=== PATIENT | female | born 1970 | race Caucasian/White ===

== ENCOUNTER 2024-11-27 00:24 | Inpatient (IN) | payer OTHER, SELFPAY ==
[2024-11-26 19:10] VITALS: BP 95/59
--- NOTE | 2024-11-26 19:59 | ED.GENMED ---
History of Present Illness
<Idania Yang PA-C - Last Filed: 11/27/24 12:28>
General
Chief Complaint: Skin Problem
Source: patient
Exam Limitations: none
Time Seen by Provider: 11/26/24 19:53
Nursing documentation reviewed up to this point in time: agreed with
History of Present Illness
History of Present Illness:
TIME OF INITIAL EVALUATION
- 20:10
REVIEW OF OLD RECORDS
- Records from [facility] obtained. Patient admitted with concern of sepsis 2/2 infected wound of DORIS walsh from IVDU. She left AMA yesterday and presents to [facility].
Note:
CHIEF COMPLAINT(S)
Severe weakness and leg wound requiring debridement.
HISTORY OF PRESENT ILLNESS
The patient is a 54-year-old female with a history significant for chronic drug use, presenting with severe weakness and large wound on her left lower leg. Symptoms began approximately four days ago, including speaking gibberish, involuntary head
movements, and inability to use her legs due to weakness, not pain. The wound in question has been present for about two months, initially small and progressively worsening. The patient reports associated symptoms of fever and chills.
She was admitted at at [facility], however left AGAINST MEDICAL ADVICE yesterday given her dissatisfaction with care. Apparently�they were planning to surgically debride wound and briefly considered amputation.
Patient presents here she is still feeling extremely weak. She has been unable to ambulate given her significant weakness.
She has a history of sepsis and is concerned about recurrence given her symptoms.
The patient reports she has a history of IV drug use however has been clean for the past 20 years until recently when her fianc� . She states she has been using IV tranquilizer for the past 6 weeks. She denies alcohol use.
The patient denies current chest pain or shortness of breath.
CHRONIC MEDICAL CONDITIONS SIGNIFICANTLY AFFECTING CARE
Chronic conditions affecting care: History of sepsis and chronic drug use.
SOCIAL DETERMINANTS AFFECTING HEALTH
The patient has a history of chronic drug use over 25 years, with recent cessation three days ago. She reports having abstained from substance use for 20 years previously. Her current symptoms are potentially exacerbated by socioeconomic challenges,
including a disruptive home environment and stress related to her daughters actions.
REVIEW OF SYSTEMS
- Constitutional: Severe weakness, fatigue, fever, and chills.
- Neurological: No current confusion. Previous episodes of speaking gibberish and involuntary movements described.
- Respiratory: No shortness of breath reported.
- Cardiovascular: Denies chest pain. Reports previous episodes of dropping blood pressure.
- Gastrointestinal: Nausea and vomiting after drug cessation.
- Musculoskeletal: Inability to walk due to weakness. No pain reported with weakness.
- Skin: Wounds on left leg, no other wounds noted.
PHYSICAL EXAM
- Vitals: Borderline hypotensive on arrival. Afebrile
- General: Pale.
- HEENT: Poor dentition. Moist oral mucosa
- Cardiovascular: No murmurs, normal heart rate, regular rhythm, No chest wall tenderness.
- Pulmonary: No respiratory distress, breath sounds are clear and equal
- Abdomen: Soft with no peritoneal signs, no tenderness
- Neurologic: A&O x 3. Strength 5/5 in bilateral upper and lower extremities. No focal neurologic deficits
- Psychiatric: Appropriate mental status.
- Extremities: Large relatively superficial wound to left anterior lower leg with areas of necrosis. Palpable DP pulse in LLE.
- Skin: Wound to left lower leg
PLAN
- Obtain full laboratory workup, including blood cultures and lactate levels.
- Administer IV fluids to address dehydration and potential infection.
- Administer IVF abx for suspected infected wound of LLE.
- Review records from [facility] to inform and enhance current treatment strategy.
- Monitor vital signs and neurological status closely due to history of sepsis and symptoms suggestive of potential recurrence.
DIFFERENTIAL DIAGNOSIS
The Differential Diagnosis includes, in no particular order and is not limited to:
1. Sepsis
2. Cellulitis
3. Abscess formation
4. Osteomyelitis
5. Septic arthritis
6. Necrotizing fasciitis
7. Withdrawal syndrome
8. Peripheral neuropathy secondary to chronic drug use
9. Thrombophlebitis
10. Deep vein thrombosis
LABS
- CBC reveals mild anemia with hgb of 10.5, no leukocytosis. Chemistry essentially unremarkable. Lactic elevated to 2.3 possible secondary to dehydration or infection
- Blood cultures and wound cultures sent.
UPDATE
- Patient has very poor vascular access and a peripheral IV was unable to be placed by nurse or attending physician under US guidance. Ultimately - it was decided to place a right IJ central line. Discussed with patient and written consent obtained.
Right IJ central line successfully placed by attending physician. Patient tolerated procedure well.
- Patient has no current severe symptoms of withdrawal other than nausea/vomiting. Will tx with benadryl/ reglan.
SUMMARY OF ENCOUNTER
The patient is a 54-year-old female with a history of intravenous drug use, presenting to the emergency department with significant weakness and a large wound on the left lower extremity, having left against medical advice from [facility].
She was previously evaluated for the leg wound and surgical discussion regarding possible debridement or amputation took place. Currently, the patient denies fever, chills, chest pain, and shortness of breath. Upon ED arrival, she was hypotensive,
appeared very weak, dry, and dehydrated, which will require hospitalization. Management included placement of right IJ central line as well as administration of IV fluids, obtaining lab work and cultures (both blood and wound), and initiation of IV
antibiotics in ED. Patient accepted to hospitalist service for further management.
MEDICATION RECONCILIATION
Initiated IV Vancomycin and Piperacillin-Tazobactam (Zosyn) in the emergency department.
MEDICAL DECISION MAKING
1. Number & Complexity of Problems: Chronic conditions affecting care include a history of intravenous drug use. Differential diagnoses considered were sepsis, cellulitis, osteomyelitis, and withdrawal syndrome.
2. Data Reviewed:
- Category 1: Lab work showed mild aberrations�mildly elevated lactate at 2.3, indicating potential dehydration or infection.
- Category 2: Obtained records from [facility], reviewed prior care and imaging records indicating significant edema without necrotizing fasciitis or osteomyelitis.
3. Risk: Consideration of admission due to the complexity and risk associated with significant wound infection, potential for sepsis, dehydration, and the patients inability to care for herself independently.
PROCEDURES
- Central line placement with ultrasound guidance due to difficulty obtaining peripheral IV access. The patient tolerated the procedure well.
INDEPENDENT REVIEW OF LABS AND INTERPRETATION OF TESTS
- My independent review of chemistry is without acute abnormalities. Lactic acid is mildly elevated at 2.3, suggestive of dehydration or infection presence.
PATHOLOGIES TO CONSIDER
- Sepsis (due to wound infection, hypotension, and elevated lactate)
- Cellulitis (considering large infected leg wound)
- Osteomyelitis (though previous imaging did not show evidence)
- Withdrawal syndrome (history of drug use with recent cessation)
- Cellulitis (considering large infected leg wound)
- Osteomyelitis (though previous imaging did not show evidence)
- Withdrawal syndrome (history of drug use with recent cessation)
Past History
<Idania Yang PA-C - Last Filed: 11/27/24 12:28>
Past History
ED Past Medical History: Other (IV drug abuse, methadone dependence), Other (Left knee septic arthritis MSSA) and Other (Cholelithiasis)
ED Past Surgical History: Orthopedic (Left knee arthroscopy, washout procedure 03/25/2017)
Social History
Tobacco: Smoker
Alcohol: Occasional
Drug: Cocaine, Narcotics and IVDA
Living: with family
Employment: Not employed
Family History
Family History: Asthma
Review of Systems
<Idania Yang PA-C - Last Filed: 11/27/24 12:28>
Review of Systems
Allergies reviewed?: Yes
All Other Systems: ROS reviewed and negative except as documented in HPI and ROS
Phy Exam
<Idania Yang PA-C - Last Filed: 11/27/24 12:28>
Physical Exam
Physical Exam:
See HPI
Course
<Idania Yang PA-C - Last Filed: 11/27/24 12:28>
Orders/Labs/Results
Orders:
Orders
11/26/24 19:16
Electrocardiogram (*1) Urgent
Reason for Study: Other
Other Reason for Exam: Possible Sepsis
Cardiac Monitoring- Treatment ONCE
EKG- Treatment ONCE
O2 Therapy [RESP] Urgent
Titrate/Wean O2 to maintain O2 sat greater than (%): 93
Special Instructions: TO MAINTAIN CONTINUOUS O2 SATS > OR = 93%
Pulse Ox/cont/shift [RESP] Urgent
Quantity: 1
Special Instructions: CONTINUOUS
11/26/24 20:13
Complete Blood Count/With Diff Urgent
Comprehensive Metabolic Panel Urgent
Lactic Acid Q4H
Comment: ON ICE, CANCEL 2ND ORDER IF FIRST LACTIC ACID LEVEL <2
11/26/24 20:16
0.9% Sodium Chloride 1000 ml [Nss] 1,000 ml IV BOLUS
11/26/24 22:12
CR Chest Portable - 1 View Urgent
Comment:
Reason For Exam: R IJ line placement
Reason Study Needs to be Portable: Patient Unstable
11/26/24 22:41
Piperacillin/Tazo 3.375 Gram [Zosyn] 3.375 gram in 50 ml IV NOW
11/26/24 22:49
Blood Culture Q30M
DC Source: Blood/Venous
Specimen Description:
Blood Culture Q30M
DC Source: Blood/Venous
Specimen Description:
Wound Culture [Wound/Abscess/Other Culture] Urgent
DC Source: Leg
Specimen Description: Left
Date Specimen was Collected: 11/26/24
Time Specimen was Collected: 22:47
11/26/24 23:00
Flush (0.9% Sodium Chloride) [Flush (Nss)] See Dose Instructions IV PER PROTOCOL
11/26/24 23:11
Vancomycin [Vancocin] 2,000 mg 0.9% Sodium Chloride 500 ml [Nss] 500 ml IV NOW
11/26/24 23:18
Diphenhydramine [Benadryl] 50 mg PO NOW STA
11/26/24 23:30
Lactic Acid Q4H
Comment: ON ICE, CANCEL 2ND ORDER IF FIRST LACTIC ACID LEVEL <2
11/26/24 23:31
Metoclopramide [Reglan] 10 mg IV NOW STA
11/26/24 23:33
Diphenhydramine [Benadryl] 25 mg IV NOW STA
11/27/24 00:02
Admit/Transfer Patient As Directed
Co-Sign Provider:
Level of Care: Inpatient admission
Assign to:: Telemetry
Physician / Group: Kim
Diagnosis: wound infection
Reason for Telemetry: Other
Other Reason for Telemetry: monitor withdrawal
Date to Stop Telemetry: 11/29/24
Time to Stop Telemetry: 11:00
Reason for Hospitalization: weakness, infection
Expected length of stay greater than two midnights?: Yes
ELOS- Estimated Length of Stay in days: 2
I certify the patient meets the requirements for IP care: Yes
11/27/24 00:03
Code Status As Directed
Resuscitation Status: Full Code
PRN Pain Medication Management As Directed
May give lesser potent ordered pain med per pt: Yes
preference::
Protocol:: Medication orders for pain may be administered in a
manner that supports deferring to patient preference
when the pt is:
- Requesting an ordered lesser potent pain medication.
Least to most potent pain medications are defined
as: acetaminophen < NSAID < tramadol < opioids
(morphine, oxycodone, hydromorphone).
- Requesting a lesser dose of the same medication IF
ORDERED.
- Requesting a less intrusive route of administration
if both routes are prescribed by the provider (PO <
IV).
11/27/24 01:33
0.9% Sodium Chloride 1000 ml [Nss] 1,000 ml IV 100 mls/hr
Acetaminophen [Tylenol] 650 mg PO Q4HPRN PRN
Bisacodyl [Dulcolax] 10 mg RECTAL [id number] PRN
Buprenorphine [Subutex] 4 mg SL Q4HPRN PRN
Clonidine [Catapres] 0.1 mg PO Q6HPRN PRN
Docusate W/Senna [Senokot-S] 1 tablet PO BIDPRN PRN
HydrOXYZINE [Atarax] 50 mg PO Q6HPRN PRN
Loperamide [Imodium] 2 mg PO Q4HPRN PRN
Lorazepam [Ativan] 0.5 mg PO Q6HPRN PRN
Ondansetron Injectable [Zofran] 4 mg IV Q6HPRN PRN
Polyethylene Glycol Powder [Miralax] 17 grams PO DAILYPRN PRN
Tizanidine [Zanaflex] 2 mg PO Q6HPRN PRN
11/27/24 01:33
Case Management Consult ONCE
Case Management Consult: Other
Comment: opioid withdrawal
Consult Notification Routine
Specialty to Notify: Infectious Disease
INFECTIOUS DISEASE CONSULT Routine
Consulting Provider: Mere Luu
Was physician already notified: No
Reason for consult: wound infection/cellulitis w/o deep tissue infection, h/o IVDA
WOUND/OSTOMY CONSULT Routine
Reason for Consult: injection site wounds in LLE
Warm Handoff Consult ONCE
Patient agreeable to Warm Hand off: Yes
Call made to [phone]: Left Message for followup
Activity As Directed
Activity Level: With Assistance
Clinical Opioid Withdrawal Scale (COWS) Q4
Frequency:: now, Q4 hours x 24 hours, then PRN based on symptoms
Medical Records Request [Obtain Records] As Directed
Dates of Information to be Released: November 05 - November 27, 2024
Type of Information Requested: Lab Results
If Other, list type of info requested: Microbiology results
Obtain Records from: [facility]
DX Deep Vein Thrombosis Video Routine
11/27/24 02:25
Urine Drug Abuse Screen Stat
Date Specimen was Collected: 11/27/24
Time Specimen was Collected: 02:38
11/27/24 04:47
Cardiovascular Evaluation IN AM
Complete Blood Count/No Diff IN AM
11/27/24 Breakfast
Regular
At Your Request: Full Participation
11/27/24 18:00
Enoxaparin Sodium [Lovenox] 40 mg SC QPM
11/28/24 08:00
Buprenorphine [Subutex] 4 mg SL ONCE PRN PRN
Buprenorphine [Subutex] See Dose Instructions SL ONCE ONE
11/29/24 08:00
Buprenorphine [Subutex] See Dose Instructions SL DAILY
11/29/24 11:00
DC Protocol for Telemetry ONCE
Abnormal Lab Results
11/26/24
20:13
RBC 4.12 L 10^6/uL
(4.20-5.40)
Hgb 10.5 L g/dL
(12.0-16.0)
Hct 31.6 L %
(37.0-47.0)
MCV 76.7 L fL
(81.0-99.0)
MCH 25.5 L pg
(27.0-31.0)
RDW 14.6 H %
(11.5-14.5)
Abs Immat Gran (auto) 0.1 H 10^3/uL
(0-0.05)
Absolute Lymphs (auto) 4.0 H 10^3/uL
(1.2-3.4)
Immature Gran % 0.6 H %
(0-0.5)
Chloride 110 H mmol/L
(98-107)
BUN < 2 L mg/dl
(7-17)
Glucose 144 H mg/dl
(70-99)
Lactic Acid 2.3 H mmol/L
(0.7-2.0)
Alkaline Phosphatase 155 H U/L
(38-126)
Albumin 3.0 L g/dl
(3.5-5.0)
11/26/24 20:13
11/26/24 20:13
Vital Signs
Initial and Last Documented VS:
Initial Vital Signs
Temp Pulse Resp BP Pulse Ox
97.9 F 65 18 95/59 99
11/26/24 19:10 11/26/24 19:10 11/26/24 19:10 11/26/24 19:10 11/26/24 19:10
Last Documented Vital Signs
Temp Pulse Resp BP Pulse Ox
98.2 F 91 18 154/87 99
11/27/24 07:00 11/27/24 07:00 11/27/24 07:00 11/27/24 07:00 11/27/24 10:53
<Gabo Murillo, DO - Last Filed: 11/26/24 22:12>
Orders/Labs/Results
Orders:
Orders
11/26/24 19:16
Electrocardiogram (*1) Urgent
Reason for Study: Other
Other Reason for Exam: Possible Sepsis
Cardiac Monitoring- Treatment ONCE
EKG- Treatment ONCE
O2 Therapy [RESP] Urgent
Titrate/Wean O2 to maintain O2 sat greater than (%): 93
Special Instructions: TO MAINTAIN CONTINUOUS O2 SATS > OR = 93%
Pulse Ox/cont/shift [RESP] Urgent
Quantity: 1
Special Instructions: CONTINUOUS
11/26/24 20:13
Complete Blood Count/With Diff Urgent
Comprehensive Metabolic Panel Urgent
Lactic Acid Q4H
Comment: ON ICE, CANCEL 2ND ORDER IF FIRST LACTIC ACID LEVEL <2
11/26/24 20:16
0.9% Sodium Chloride 1000 ml [Nss] 1,000 ml IV BOLUS
11/26/24 22:12
CR Chest Portable - 1 View Urgent
Comment:
Reason For Exam: R IJ line placement
Reason Study Needs to be Portable: Patient Unstable
11/26/24 22:41
Piperacillin/Tazo 3.375 Gram [Zosyn] 3.375 gram in 50 ml IV NOW
11/26/24 22:49
Blood Culture Q30M
DC Source: Blood/Venous
Specimen Description:
Blood Culture Q30M
DC Source: Blood/Venous
Specimen Description:
Wound Culture [Wound/Abscess/Other Culture] Urgent
DC Source: Leg
Specimen Description: Left
Date Specimen was Collected: 11/26/24
Time Specimen was Collected: 22:47
11/26/24 23:00
Flush (0.9% Sodium Chloride) [Flush (Nss)] See Dose Instructions IV PER PROTOCOL
11/26/24 23:11
Vancomycin [Vancocin] 2,000 mg 0.9% Sodium Chloride 500 ml [Nss] 500 ml IV NOW
11/26/24 23:18
Diphenhydramine [Benadryl] 50 mg PO NOW STA
11/26/24 23:30
Lactic Acid Q4H
Comment: ON ICE, CANCEL 2ND ORDER IF FIRST LACTIC ACID LEVEL <2
11/26/24 23:31
Metoclopramide [Reglan] 10 mg IV NOW STA
11/26/24 23:33
Diphenhydramine [Benadryl] 25 mg IV NOW STA
11/27/24 00:02
Admit/Transfer Patient As Directed
Co-Sign Provider:
Level of Care: Inpatient admission
Assign to:: Telemetry
Physician / Group: Kim
Diagnosis: wound infection
Reason for Telemetry: Other
Other Reason for Telemetry: monitor withdrawal
Date to Stop Telemetry: 11/29/24
Time to Stop Telemetry: 11:00
Reason for Hospitalization: weakness, infection
Expected length of stay greater than two midnights?: Yes
ELOS- Estimated Length of Stay in days: 2
I certify the patient meets the requirements for IP care: Yes
11/27/24 00:03
Code Status As Directed
Resuscitation Status: Full Code
PRN Pain Medication Management As Directed
May give lesser potent ordered pain med per pt: Yes
preference::
Protocol:: Medication orders for pain may be administered in a
manner that supports deferring to patient preference
when the pt is:
- Requesting an ordered lesser potent pain medication.
Least to most potent pain medications are defined
as: acetaminophen < NSAID < tramadol < opioids
(morphine, oxycodone, hydromorphone).
- Requesting a lesser dose of the same medication IF
ORDERED.
- Requesting a less intrusive route of administration
if both routes are prescribed by the provider (PO <
IV).
11/27/24 01:33
0.9% Sodium Chloride 1000 ml [Nss] 1,000 ml IV 100 mls/hr
Acetaminophen [Tylenol] 650 mg PO Q4HPRN PRN
Bisacodyl [Dulcolax] 10 mg RECTAL [id number] PRN
Buprenorphine [Subutex] 4 mg SL Q4HPRN PRN
Clonidine [Catapres] 0.1 mg PO Q6HPRN PRN
Docusate W/Senna [Senokot-S] 1 tablet PO BIDPRN PRN
HydrOXYZINE [Atarax] 50 mg PO Q6HPRN PRN
Loperamide [Imodium] 2 mg PO Q4HPRN PRN
Lorazepam [Ativan] 0.5 mg PO Q6HPRN PRN
Ondansetron Injectable [Zofran] 4 mg IV Q6HPRN PRN
Polyethylene Glycol Powder [Miralax] 17 grams PO DAILYPRN PRN
Tizanidine [Zanaflex] 2 mg PO Q6HPRN PRN
11/27/24 01:33
Case Management Consult ONCE
Case Management Consult: Other
Comment: opioid withdrawal
Consult Notification Routine
Specialty to Notify: Infectious Disease
INFECTIOUS DISEASE CONSULT Routine
Consulting Provider: Mere Luu
Was physician already notified: No
Reason for consult: wound infection/cellulitis w/o deep tissue infection, h/o IVDA
WOUND/OSTOMY CONSULT Routine
Reason for Consult: injection site wounds in LLE
Warm Handoff Consult ONCE
Patient agreeable to Warm Hand off: Yes
Call made to [phone]: Left Message for followup
Activity As Directed
Activity Level: With Assistance
Clinical Opioid Withdrawal Scale (COWS) Q4
Frequency:: now, Q4 hours x 24 hours, then PRN based on symptoms
Medical Records Request [Obtain Records] As Directed
Dates of Information to be Released: November 05 - November 27, 2024
Type of Information Requested: Lab Results
If Other, list type of info requested: Microbiology results
Obtain Records from: [facility]
DX Deep Vein Thrombosis Video Routine
11/27/24 02:25
Urine Drug Abuse Screen Stat
Date Specimen was Collected: 11/27/24
Time Specimen was Collected: 02:38
11/27/24 04:47
Cardiovascular Evaluation IN AM
Complete Blood Count/No Diff IN AM
11/27/24 Breakfast
Regular
At Your Request: Full Participation
11/27/24 18:00
Enoxaparin Sodium [Lovenox] 40 mg SC QPM
11/28/24 08:00
Buprenorphine [Subutex] 4 mg SL ONCE PRN PRN
Buprenorphine [Subutex] See Dose Instructions SL ONCE ONE
11/29/24 08:00
Buprenorphine [Subutex] See Dose Instructions SL DAILY
11/29/24 11:00
DC Protocol for Telemetry ONCE
Abnormal Lab Results
11/26/24
20:13
RBC 4.12 L 10^6/uL
(4.20-5.40)
Hgb 10.5 L g/dL
(12.0-16.0)
Hct 31.6 L %
(37.0-47.0)
MCV 76.7 L fL
(81.0-99.0)
MCH 25.5 L pg
(27.0-31.0)
RDW 14.6 H %
(11.5-14.5)
Abs Immat Gran (auto) 0.1 H 10^3/uL
(0-0.05)
Absolute Lymphs (auto) 4.0 H 10^3/uL
(1.2-3.4)
Immature Gran % 0.6 H %
(0-0.5)
Chloride 110 H mmol/L
(98-107)
BUN < 2 L mg/dl
(7-17)
Glucose 144 H mg/dl
(70-99)
Lactic Acid 2.3 H mmol/L
(0.7-2.0)
Alkaline Phosphatase 155 H U/L
(38-126)
Albumin 3.0 L g/dl
(3.5-5.0)
11/26/24 20:13
11/26/24 20:13
Vital Signs
Initial and Last Documented VS:
Initial Vital Signs
Temp Pulse Resp BP Pulse Ox
97.9 F 65 18 95/59 99
11/26/24 19:10 11/26/24 19:10 11/26/24 19:10 11/26/24 19:10 11/26/24 19:10
Last Documented Vital Signs
Temp Pulse Resp BP Pulse Ox
98.2 F 91 18 154/87 99
11/27/24 07:00 11/27/24 07:00 11/27/24 07:00 11/27/24 07:00 11/27/24 10:53
Procedures
<Gabo Murillo DO - Last Filed: 11/26/24 22:12>
Central Line
Right Internal jugular:
Indication for procedure:: Poor IV access
Procedure completed by: [place], Dr. Murillo
Consent form signed: Yes
Anesthesia: 1% Lidocaine
Central line lumen: triple
Number of attempts: 1
Central line complications: none
Sterile dressing applied?: Yes
<Idania Yang PA-C - Last Filed: 11/27/24 12:28>
*Pulse Oximetry
SaO2: 99
Oxygen Mode of Delivery: Room air
Patient hypoxic: no
*EKG
Interpreted by ED Provider?: NA
*Engraver Machine Interpretation
Rate: normal
Interpretation: normal
Heart Rate: 84
Rhythm: sinus
*Critical Care Note
Total Time (30-74mins, 75-104mins- exclusive of procedures): Not Applicable
Data Reviewed
Review of Other/Old Records Reveals: Records (Records from [facility] admission patient left AMA)
<Idania Yang PA-C - Last Filed: 11/27/24 12:28>
Patient Management
Discussion with other providers: Hospitalist
Escalation/DeEscalation of care consider admission/obs:
Admit for IV abx, IVF, further management
ED Attending Note
<Idania Yang PA-C - Last Filed: 11/27/24 12:28>
-
Portions of this chart may have been created with voice recognition software.� Occasional wrong word or��sound alike� substitutions may have occurred due to the inherent limitations of voice recognition software.
<Gabo Murillo DO - Last Filed: 11/26/24 22:12>
ED Attending Note
Patient seen and examined by attending physician: Yes
I performed the substantive portion of visit, reviewed & personally made and approve the management plan that is documented in note by myself or CHOCO.: Yes
ED Attending Note:
I evaluated the patient at bedside. The patient has very poor IV access. I attempted peripheral ultrasound-guided lines however ultimately required central line placement.
Discharge Plan
Departure
Patient Disposition: Admit
Date of Disposition: 11/26/24
Time of Disposition: 22:42
Presentation/result/management discussed w/ accepting MD/DO: Hospitalist
Discharge Problem:
Open wound of left lower leg, Weakness, Acute dehydration, Substance abuse
Interventions
Interventions:
*Risk Screen - Suicide Last Done: 11/26/24 19:10
*General Assessment Last Done: 11/26/24 19:10
*Neglect/Abuse Screening Last Done: 11/26/24 19:10
*ED- Fall Risk Assessment Last Done: 11/27/24 00:00
*ED COVID-19 Vaccine History Last Done: 11/27/24 00:00
*Nursing Disposition Last Done: 11/27/24 01:22
ED-Skin Assessment Last Done: 11/26/24 22:00
Discharge Date and Time
Discharge Date/Time: 11/27/24 01:23
[2024-11-26 20:00] VITALS: BP 107/65
[2024-11-26 21:05] VITALS: BP 121/72
[2024-11-26 22:00] VITALS: BP 127/78
[2024-11-26 22:37] LABS: % Basophils 0.3 % (0-2); % Immature Granulocytes 0.6 % (0-0.5); % Lymphocytes 41.4 % (20.5-51.1); % Monocytes 5.5 % (1.7-9.3); % Neutrophils 50.2 % (42.2-75.2); Absolute Eosinophils 0.2 10^3/uL (0-0.7); Absolute Immature Granulocytes 0.1 10^3/uL (0-0.05); Absolute Monocytes 0.5 10^3/uL (0.1-0.6); Absolute Neutrophils 4.8 10^3/uL (1.4-6.5); Hematocrit 31.6 % (37.0-47.0); Hemoglobin 10.5 g/dL (12.0-16.0); Mean Corp Hgb Conc. 33.2 g/dL (33.0-37.0); Mean Corpuscular Hgb 25.5 pg (27.0-31.0); Mean Corpuscular Volume 76.7 fL (81.0-99.0); Mean Platelet Volume 8.1 fL (7.4-10.4); Nucleated Red Blood Cells % 0 %; Platelet Count 352 10^3/uL (130-400); Red Blood Cell Count 4.12 10^6/uL (4.20-5.40); Red Cell Dist. Width 14.6 % (11.5-14.5); White Blood Cell Count 9.6 10^3/uL (4.8-10.8)
[2024-11-26] MEDS: NSS 1000 IV (22:51)
[2024-11-26 23:00] VITALS: BP 131/67
[2024-11-26] MEDS: ZOSYN 50 IV (23:00)
[2024-11-26 23:06] LABS: ALT (SGPT) 15 U/L (0-35); AST (SGOT) 20 U/L (14-36); Alkaline Phosphatase 155 U/L (38-126); Blood Urea Nitrogen < 2 mg/dl (7-17); Calcium 8.4 mg/dl (8.4-10.2); Carbon Dioxide 23 mmol/L (22-30); Chloride 110 mmol/L (98-107); Glucose 144 mg/dl (70-99); Potassium 3.5 mmol/L (3.5-5.1); Sodium 142 mmol/L (135-145); Total Bilirubin 0.5 mg/dl (0.2-1.3); Total Protein 7.4 g/dl (6.3-8.2); eGFR > 60.00
[2024-11-26 23:09] LABS: Lactic Acid 2.3 mmol/L (0.7-2.0)
--- NOTE | 2024-11-26 23:32 | HPS.HSE ---
Family Physician
-
Family Physician: NOT KNOW UNKNOWN - PT DOES
Chief Complaint
-
Weakness
History of Present Illness
This is a 54-year-old female with past medical history of IV drug abuse and a large left lower extremity wound secondary to the IV drug abuse that has been there for several weeks presenting to the emergency department for weakness after she left
[facility] yesterday AGAINST MEDICAL ADVICE.
Patient reported that she has been clean for the past 20 years with her methadone program but since fianc� patient started using IV tranquilizer for the past 6 weeks. She denies any other IV drug use. She injects into the skin and
wounds in left lower extremity. She states that the wounds have been opening and closing for the last 6 weeks. She reports that she intended to obtain fentanyl but was getting drugs that are mixed with xylazine.
She reported that she presented to [facility] for development of symptoms that began approximately 4 days ago. At the time she appeared to be confused and encephalopathic with involuntary head movements and gibberish speech as well as
weakness. She reported having associated fevers and chills. No shortness of breath nausea vomiting or diarrhea.
Her last injection was 4 days ago. She reports having nausea, abdominal and back spasms and received ativan once. She left A due to consideration of amputation.
She was started on treatment with IV antibiotics and surgery was consulted with plan for wound debridement and possible amputation which was not pursued.
In the emergency department. The patient was afebrile with temp of nine 7.9, blood pressure 130/60 with a pulse of 89 satting 98% on room air.
CBC was largely unremarkable with a white count of 9.6 hemoglobin of 10.5 and platelet 352. Her electrolytes were normal. BUN/creatinine was normal.
Lactic acid was elevated at 2.3, ECG shows normal sinus rhythm at rate of [address] or T wave changes. QTc was 458.
Chest x-ray has right IJ central line in the appropriate position. There are no focal consolidations or infiltrates.
Medical History
Past Medical History
Past Medical History: Reports Other (History of IV drug use)
Additional Past Medical History:
Cholelithiaisis
Past Surgical History: Reports Bowel Resection
Social History
Tobacco: Former Smoker
Alcohol: None
Drug: None and IVDA
Personal: Single
Living: With Family
Family History
Family History: Not pertinent
Allergies / Home Medications
Allergies reflects when Allergies were last updated in [facility].
Home Medications with original date entered in [facility]
Allergy/Medication List:
Allergies
Allergy/AdvReac Type Severity Reaction Status Date / Time
No Known Allergies Allergy Verified 10/04/20 11:07
Home Medications
methadone 10 mg/mL oral concentrate (Methadose) 93 mg PO DAILY 01/19/18
oxycodone 10 mg tablet 10 mg PO QID prn pain #30 tabs 01/24/18
clindamycin HCl 300 mg capsule 300 mg PO TID #21 caps 11/26/18
ketorolac 10 mg tablet 10 mg PO Q6HPRN PRN pain #20 tabs 11/26/18
clindamycin HCl 300 mg capsule 300 mg PO TID #41 caps 12/24/18
amoxicillin 875 mg-potassium clavulanate 125 mg tablet 1 tab PO Q12 #14 tabs 10/04/20
Review of Systems
-
Constitutional: Reports No Symptoms
EENT: Reports No Symptoms
Respiratory: Reports No Symptoms
Cardiac: Reports No Symptoms
Abdomen/GI: Reports Abdominal Pain and Nausea
: Reports No Symptoms
Musculoskeletal: Reports No Symptoms
Skin: Reports Rash
Neurological: Reports Weakness
Endocrine: Reports No Symptoms
Hematologic/Lymphatic: Reports No Symptoms
Psych: Reports No Symptoms
Physical Exam
Vital Signs
Vital Signs
Temp Pulse Resp BP Pulse Ox
97.9 F 82 34 131/67 97
11/26/24 19:10 11/26/24 23:00 11/26/24 23:00 11/26/24 23:00 11/26/24 23:00
Physical Exam
General: Well Developed, Well Nourished and No Apparent Distress
HEENT: NormoCephalic, Moist mucous membranes and Atraumatic
Respiratory: Clear
Cardiac: S1/S2 and Regular Rhythm; No Murmur or Rub
GI: Soft, Non Tender, Non Distended and Normal Bowel Sounds; No Organomegaly
Rectal: Deferred by Provider
Musculoskeletal: No Clubbing, No Cyanosis and Edema, Left Lower Extremity
Skin: Lesions (superficial wounds in the LLE in different stages of healing and opening with occasional necrotic spots, large area of erythema and edema.)
Neuro: Nonfocal/grossly intact
Hematologic/Lymphatic: No Lymphadenopathy
Psych: Calm
Laboratory Results
-
11/26/24 20:13
11/26/24 20:13
Laboratory Results
Lactic Acid 2.3 mmol/L (0.7-2.0) H 11/26/24 20:13
Total Bilirubin 0.5 mg/dl (0.2-1.3) 11/26/24 20:13
AST 20 U/L (14-36) 11/26/24 20:13
ALT 15 U/L (0-35) 11/26/24 20:13
Alkaline Phosphatase 155 U/L (38-126) H 11/26/24 20:13
Data Reviewed
-
Diagnostic Radiology: Image Personally Visualized and interpreted and Report Reviewed by me
Lab Data: Labs Reviewed by me
Old Records: Reviewed
Impression/Plan
-
IMPRESSION:
54-year-old with history of IV drug abuse, recently restarted using IV drugs with xylazine and injecting into her left lower extremity with subsequent development of extensive wound over the last 6 weeks and presented to [facility] ([facility]) with
weakness lethargy and suspected superinfection of the wound. She was evaluated and started on IV vancomycin and Zosyn. She was felt to be in withdrawal and was placed on a Ativan protocol. Blood cultures were sent. Patient was evaluated with a
CT scan which showed extensive soft tissue edema and skin thickening of the anterior lower legs as well as diffuse regions of skin ulceration ulceration, there was no subcutaneous gas, no drainable subcutaneous or intramuscular fluid collection, and
no evidence of compartment syndrome. She left AGAINST MEDICAL ADVICE and went home but immediately came back to the emergency department here for ongoing weakness. Patient feels like she is still in withdrawal from substance use
(xylazine/fentanyl) and last use was 4 days ago according to the patient. She denies any alcohol use
PLAN:
Skin infection -unfortunately she has necrotic skin lesions likely secondary to xylazine injection into our open wounds. She has cellulitis, and she might of had sepsis while she presented to [facility] but currently seems improved.
- Admit to telemetry
-Blood cultures have been sent, will obtain blood cultures from [facility] via medical records in the morning
-Will continue IV vancomycin
- Check MRSA swab
-Continue hydration
-Wound care consultation
-ID consultation
-Based on the CT scan does not appear that the patient needs a surgical debridement but likely does need excellent wound care and abstinence from repeat injection close xylazine
Substance abuse/dependence -fentanyl/xylazine injections, last use 4 days ago. She is not in acute withdrawal at this time but still has symptoms such as nausea vomiting and spasms. Hemodynamically stable. Denies alcohol dependence alcohol use.
-Obtain urine drug screen
-Will start COWs protocol with buprenorphine
- adjuvant prns
-Patient willing to undergo outpatient detox/rehab but not inpatient, call to hand off hotline and left message
DVT prophylaxis�Lovenox subcu
CODE STATUS�full code
[2024-11-26] MEDS: BENADRYL 25 MG IV (23:38)
[2024-11-26] MEDS: REGLAN 10 MG IV (23:39)
[2024-11-27] VITALS: BP 149/81
[2024-11-27] MEDS: VANCOCIN 540 MG IV (00:35)
[2024-11-27 01:51] VITALS: BMI 38.7
[2024-11-27 01:53] VITALS: BP 163/88
--- NOTE | 2024-11-27 02:00 | PTCARENOTE ---
Patient arrived to unit via stretcher accompanied by ED PCT. Patient transferred self from stretcher to bed. Nursing assessment completed and as documented. Wound care provided to LLE. Oriented to room/facility, instructed use of call mcelroy and
within reach, VSS, care ongoing. See MAR for intermediate frame tender.
[2024-11-27] MEDS: ZOFRAN 4 MG IV (02:02)
[2024-11-27] MEDS: NSS 1000 IV (02:03)
[2024-11-27 02:33] LABS: Lactic Acid 2.2 mmol/L (0.7-2.0)
[2024-11-27 02:59] LABS: Amphetamines Negative (Negative); Barbiturates Negative (Negative); Benzodiazepines Positive (Negative); Buprenorphine Negative (Negative); Cocaine Negative (Negative); Marijuana Negative (Negative); Methadone Negative (Negative); Methamphetamines Negative (Negative); Opiates Negative (Negative); Phencyclidine Negative (Negative); Tricyclic Antidepressants Negative (Negative)
[2024-11-27 03:07] LABS: Fentanyl, Urine Positive (Negative)
--- NOTE | 2024-11-27 03:30 | PTCARENOTE ---
Patient on telemetry, went into SVT rate 170's briefly followed by ermelinda. Patient spontaneous converted back to NSR 70-80's. Asymptomatic at this time. SENIOR FOREMAN made aware, orders placed for Mag in AM. Care ongoing.
--- NOTE | 2024-11-27 04:12 | W.PN.UPDATE ---
Update Note
Progress Note Update
RN noted on quality assurance monitor chassis, around 3 am patient started w/intermittent bigeminy on quality assurance monitor chassis, around 3:40 Pt w/ short burst of SVT, HR 160's that lasted approximately 30-40 seconds, followed by short run of bigemny, HR in the 60's.
Patient asymptomatic, sleeping, vital signs stable. Added Magnesium level to am labs. Cardiology consulted.
[2024-11-27 05:00] VITALS: BP 161/81
--- NOTE | 2024-11-27 05:00 | PTCARENOTE ---
Patient assisted to BS, bottle of loose bills and blue paper strips found in bed. Patient admits they belong to her, denies taking anything while inpatient and is agreeable to confiscating medication. Education provided on medication administration
while inpatient. Patient admits the medications were 'Ativan, K Pin, and Strips'. Patient denies additional medications on person or belongings and agreeable to a search. TELEHEALTH CASE MANAGER, nursing telesales supervisor, pharmacy and security made aware. Medications taken
to pharmacy and verified with pharmacist for storage purposes.
[2024-11-27 05:31] LABS: Hematocrit 28.9 % (37.0-47.0); Hemoglobin 9.7 g/dL (12.0-16.0); Mean Corp Hgb Conc. 33.6 g/dL (33.0-37.0); Mean Corpuscular Hgb 25.7 pg (27.0-31.0); Mean Corpuscular Volume 76.5 fL (81.0-99.0); Mean Platelet Volume 8.4 fL (7.4-10.4); Platelet Count 466 10^3/uL (130-400); Red Blood Cell Count 3.78 10^6/uL (4.20-5.40); Red Cell Dist. Width 14.7 % (11.5-14.5); White Blood Cell Count 13.5 10^3/uL (4.8-10.8)
[2024-11-27 05:50] LABS: ALT (SGPT) 15 U/L (0-35); AST (SGOT) 18 U/L (14-36); Albumin 2.9 g/dl (3.5-5.0); Alkaline Phosphatase 143 U/L (38-126); Blood Urea Nitrogen < 2 mg/dl (7-17); Calcium 7.9 mg/dl (8.4-10.2); Carbon Dioxide 19 mmol/L (22-30); Chloride 112 mmol/L (98-107); Direct Bilirubin 0.6 mg/dl (0.0-0.4); Estimated Creatinine Clearance 113 ml/min; Glucose 158 mg/dl (70-99); HDL Cholesterol 22 mg/dl; LDL Cholesterol, Calculated 49 mg/dl; Magnesium 1.6 mg/dl (1.6-2.3); Potassium 2.9 mmol/L (3.5-5.1); Sodium 142 mmol/L (135-145); Total Bilirubin 0.6 mg/dl (0.2-1.3); Total Cholesterol 98 mg/dl (50-199); Triglyceride 139 mg/dl (10-149); Very Low Density Lipoprotein 27 mg/dl (0-30); eGFR > 60.00
[2024-11-27 07:00] VITALS: BP 154/87
--- NOTE | 2024-11-27 07:25 | PHA.VAN.IN ---
Assessment
- Assessment
Renal Function: Appears similar to baseline
Renal Function may be Overestimated due to: obesity
AUC Dosing Plan
- Dosing Variables
Dosing Weight (kg): 105
Dosing CrCl (ml/min): 100
Vd coefficient (L/kg): 0.6
- Empiric Dosing
Initial / Loading Dose: 2000 mg - given ~0000 11/27
Maintenance Regimen: 1500 mg q12h to start this AM
Estimated AUC (mcg*h/mL): 581
Estimated Peak (mcg*h/mL): 36.7
Estimated Trough (mcg/ml): 14.6
Estimated Half Life (H): 7.9
- Monitoring
No levels ordered at this time: consider levels after pm dose 11/28
Pharmacokinetics Vancomycin I
- -
Patient Age: 54
Patient Sex: Female
Vancomycin Day #: 1
Indication: Skin And Soft Tissue
Pertinent Antimicrobial Allergies:
Adebamiro
Height / Weight:
Height 5 ft 5 in
Actual Weight 105.375 kg
Pertinent Past Medical History: BMI ~ 38; hx IVDA
- Vital Signs / Lab Results
Temp Pulse Resp BP Pulse Ox
98.4 F 67 18 161/81 100
11/27/24 05:00 11/27/24 05:00 11/27/24 05:00 11/27/24 05:00 11/27/24 05:00
Lab Results - Hematology
11/26/24 11/27/24
20:13 04:47
WBC 9.6 13.5 H
Lab Results - Chemistry
11/26/24 11/27/24
20:13 04:47
BUN < 2 L < 2 L
Creatinine 0.7 0.7
Estimated Creat Clear 113
Albumin 3.0 L 2.9 L
11/26/24 11/27/24
20:13 02:10
Lactic Acid 2.3 H 2.2 H
--- NOTE | 2024-11-27 07:33 | VATNOTE ---
Right IJ TCL checked on routine rounds. Biopatch saturated with blood. Pt. refusing dressing change at this time. Pt. stated ' I'm going home today'. States she was waiting for the doctor to tell him she wants to go home. Dressing was
reportedly changed on machinist 2nd shift d/t bleeding.
--- NOTE | 2024-11-27 07:58 | W.PN.HOSP.TC ---
Today's Communication/Plan
-
Pt signing out AMA
Assessment / Plan
Assessment / Plan
54-year-old with history of IV drug abuse, recently restarted using IV drugs with xylazine and injecting into her left lower extremity with subsequent development of extensive wound over the last 6 weeks and presented to outside hospital ([facility]) with
weakness lethargy and suspected superinfection of the wound. She was evaluated and started on IV vancomycin and Zosyn. She was felt to be in withdrawal and was placed on a Ativan protocol. Blood cultures were sent. Patient was evaluated with a
CT scan which showed extensive soft tissue edema and skin thickening of the anterior lower legs as well as diffuse regions of skin ulceration ulceration, there was no subcutaneous gas, no drainable subcutaneous or intramuscular fluid collection, and
no evidence of compartment syndrome. She left AGAINST MEDICAL ADVICE and went home but immediately came back to the emergency department here for ongoing weakness. Patient feels like she is still in withdrawal from substance use
(xylazine/fentanyl) and last use was 4 days ago according to the patient. She denies any alcohol use
PLAN:
Skin infection -unfortunately she has necrotic skin lesions likely secondary to xylazine injection into our open wounds. She has cellulitis, and she might of had sepsis while she presented to [facility] but currently seems improved.
- Admitted to telemetry
-Blood cultures have been sent,
-Received IV vancomycin
-MRSA swab pending
-Continue hydration
-Wound care consultation
-ID consultation
-Based on the CT scan does not appear that the patient needs a surgical debridement but likely does need excellent wound care and abstinence from repeat injection close xylazine
Substance abuse/dependence -fentanyl/xylazine injections, last use 4 days ago. She is not in acute withdrawal at this time but still has symptoms such as nausea vomiting and spasms. Hemodynamically stable. Denies alcohol dependence alcohol use.
-Obtain urine drug screen
-started COWs protocol with buprenorphine
- adjuvant prns
-Patient willing to undergo outpatient detox/rehab but not inpatient, call to hand off hotline and left message
DVT prophylaxis�Lovenox subcu
CODE STATUS�full code
Pt states she is leaving AMA. Attempted to convince her otherwise for almost 30 minutes, but she was adamant that she was leaving and would go back to her home where her daughter would take care of her. Reviewed concern for active infection, but
was unable to convince. discussion witnessed by DWAIN Mcelroy who also helped in trying to convince pt to stay. Told her she can change her mind and return at any time, she voiced her understanding. Emphasized serious risk if she leaves and she
stated she was aware.
More than 30 minutes spent in discharge including
Final examination of the patient
Summarizing hospital stay
Instructions for continuing care to all relevant caregivers
Preparation of discharge records, prescriptions, and referral forms
Total time spent (in minutes): 60
Anticipated Discharge: Today
Subjective/Interval History
-
Date of Service: November 27, 2024
Patient states she is leaving and will be signing out AMA. Extensive discussion, witnessed in total by DWAIN Mcelroy and was unable to convince patient to stay in hospital and get treatment
Objective Data
-
Labs:
Laboratory Results
11/26/24 11/27/24
20:13 04:47
WBC 9.6 13.5 H
Hgb 10.5 L 9.7 L
Hct 31.6 L 28.9 L
Plt Count 352 466 H D
Sodium 142 142
Potassium 3.5 2.9 L
Chloride 110 H 112 H
Carbon Dioxide 23 19 L
BUN < 2 L < 2 L
Creatinine 0.7 0.7
Glucose 144 H 158 H
Calcium 8.4 7.9 L
Total Bilirubin 0.5 0.6
AST 20 18
ALT 15 15
Alkaline Phosphatase 155 H 143 H
Vital Signs:
Vital Signs
Temp Pulse Resp BP Pulse Ox
98.4 F 67 18 161/81 100
11/27/24 05:00 11/27/24 05:00 11/27/24 05:00 11/27/24 05:00 11/27/24 05:00
Review of Systems
-
History Source: Patient and Coordinated Provider (DWAIN Mcelroy)
Constitutional: Denies Fever
EENT: Reports No Symptoms Reported
Respiratory: Reports No Symptoms
Cardiac: Reports Other (monitor ~3AM noted bigeminy with a short burst of SVT); Denies Chest Pain
Abdomen/GI: Reports No Symptoms
Skin: Reports Rash (left leg with inflamed, superficial wounds with areas of necrotic changes)
Neuro: Reports No Symptoms; Denies Tremors or Seizures
Physical Exam
-
General: Well Developed, Well Nourished and No Apparent Distress
HEENT: Normocephalic, Atraumatic and Moist Mucous Membranes
Respiratory: Clear to Auscultation; Negative Wheezes, Rales or Rhonchi
Cardiac: Regular Rhythm and S1/S2
GI: Soft, Nontender and Nondistended
Genito-urinary: No Costovertebral Tender
Musculoskeletal: No Clubbing, No Cyanosis and No Edema
Skin: Rash (left leg with extensive superficial wounds with areas of skin necrosis)
Neuro: Awake, Alert and Oriented
Psych: Calm
--- NOTE | 2024-11-27 08:00 | PTCARENOTE ---
Security assisted this RN at 0720 with a search of the room and belongings for illicit drugs. Nicotine vape, cigarettes, and lighters confiscated and sent to security in proper envelope. Misc pills sent to pharmacy for identification. This RN in
with hospitalist to speak with pt, wound assessed, MD made patient aware of risk of losing limb/life due to infection and drug abuse as well as telemetry arrhythmias, pt aware and adamantly refusing treatment. Pt agreeable to abx script being sent
to home pharmacy and aware that it will not be strong enough to cure the infection in her leg. spent 20 minutes with patient reiterating outcomes and consequences of this situation, pt aware of all outcomes and still refusing hospitalization.
This RN witnessed MD and pt sign AMA form. Pt vomiting green bile consistently, refusing zofran dose before central line removed. Right IJ removed from pt, pt calling to see who can pick her up. This RN assisted pt to BSC and changed sheets/cleaned
out emesis basin. Emotional support provided.
--- NOTE | 2024-11-27 08:32 | VATNOTE ---
Pt leaving AMA, requested by PCN to D/C pt's R TL IJ. Order placed for D/C. Line D/C'd in sterile fashion and pressure dressing applied. Pt told to lie flat for at least 20 minutes.
--- NOTE | 2024-11-27 08:54 | CM ---
CM following re: discharge planning.
Reviewed pt's chart, met with pt.
Pt is a 54 year old female, admitted with primary dx of wound infection. PMH includes IV drug abuse
Pt reports she lives with daughter in an apartment located in a [address], 3 steps to enter. 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 Pt strongly denied abusing substance and only stated: 'I am leaving today'. Pt declined to meet with [facility]
team. Pt stated her friend Ervin will transport home.
PCP: Pt stated she does not have PCP, declined a list of PCP offices in her area.
Pharmacy: [facility]
Per MD, pt signed AMA form. Pt stated she does not need any services and her friend Ervin will transport home.
D/C plan: home AMA. Friend Ervin to transport.
--- NOTE | 2024-11-27 11:10 | WOUNDNOTE ---
LEFT LATERAL LOWER LEG
--- NOTE | 2024-11-27 11:10 | WOUNDNOTE ---
LEFT LATERAL/POSTERIOR LOWER LEG
--- NOTE | 2024-11-27 11:11 | WOUNDNOTE ---
LEFT LOWER LEG
--- NOTE | 2024-11-27 11:11 | WOUNDNOTE ---
LEFT GREAT TOE
--- NOTE | 2024-11-27 11:11 | WOUNDNOTE ---
BILATERAL LOWER EXTREMITIES
--- NOTE | 2024-11-27 11:15 | WOUNDNOTE ---
WON RN NOTE: Patient admitted with L leg wound from substance abuse, recently at [facility] and left AMA. PMH of IVDA able to quit in past but recently back to using since fiance . L lateral leg assessed with I&D Large odorous wound
with scattered black eschar and cox slough. Heels and sacrum are intact, able to lift legs for assessment. Recommend Dakin's WTD dressing, patient refusing and nurse reports patient signed herself out AMA again and waiting for daughter to pick her
up.
--- NOTE | 2024-11-27 14:39 | PTCARENOTE ---
Pt discharged home AMA with daughter, refused last vital signs, DC paper signed, bag with items from security given to pt and signed, given to UC. Pt aware of risks of leaving hospital, deciding to go home anyway. Pharmacy and MD made aware of pt
leaving, no new orders at this time.
--- NOTE | 2024-11-27 15:28 | CON.ID ---
Consultation
-
Date/Time Consultation Requested: November
Date/Time Consultation Performed: November
Requesting Provider: Dr Jigar Galvez
Performing Provider: Nneka Coyle MD
Reason for Consultation: Severe cekulitis LLE
Chief Complaint / Past History
Chief Complaint
increased pain at site of left lower leg non-healing infection After worsening over weeks with increasing odor pain and discomfort.The patient states that she has been feeling worse every day and has become frightened that the leg keeps getting
worse despite her local care
History of Present Illness
The patient has had very foul odor from chronic ulcerating necrotic skin and soft tissue infection at sites of 'Skin Popping' oherwise described as superficial injections of narcotic substances under skin. Current defect most prominent on the left
lower leg with oozing and devitalized tissue and slough, There are multiple areas of smaller abscess as well as well partially healed lesions and multiple scarred area involving the legs.
The patient was seen at a neighboring hospital where she received Vancomycin/Zosyn before leaving [facility] and appearing in our ED for evaluation with continued fever and chills. The patient states that she had been clean for 20 years on methadone but
started using drugs again after the of her fianc�.
At the time of her arrival at the previous institution she was described as appearing confused with garbled speech and with weakness. Per the patient she was having intermittent fevers and chills without associated symptoms. Her most recent
injection was fourth days prior to her arrival in the previous facility.She states that she left [facility] because of discussion regarding possible amputation.
Past History
Past Medical History: Other (past heroin addiction,methadone dependence, current fentanyl,benzodiazapine use via skin popping legs)
Additional Past Medical History:
Cholelithiasis,Bowel resection
Past Surgical History: Other (Bowel resection)
Allergy History:
No Known Allergies Allergy (Verified 10/04/20 11:07)
Medications Reviewed: Yes
Current Antibiotics:
doxycycline, amoxicillin
Social History
Tobacco: Former Smoker
Alcohol: None
Drug: Narcotics, IVDA and Other (skin popping)
Personal: Single
Living: With Family (adult daughter)
Employment: Not Employed
Family History
Family History: Not Pertinent
Review of Systems
Review of Systems
General: Fever and Chills
Skin / Hair / Nails: Lesions (scars,partially healed ,active skin ulcerations legs)
Psychological: Substance Abuse (long history wth relapse after 20 years clean,recent methadone,current skin popping)
All systems: All other systems were reviewed and were negative
Vital Signs
Temp Pulse Resp BP Pulse Ox
98.2 F 91 18 154/87 99
11/27/24 07:00 11/27/24 07:00 11/27/24 07:00 11/27/24 07:00 11/27/24 10:53
Physical Exam
Physical Exam
Constitutional: No Acute Distress, Well Developed (The patient states that she sought medical care due to worsening odor and wounds and she became worried because she was feeling worse every day) and Obese (uncomfortable,acute fetid smelling skin
ulcerations at site of recent injections with coalesced area left lower leg)
Head: Normocephalic
Eyes: Pupils Equal, Pupils Round, No Conjunctival Hemorrhage and Sclera Anicteric
Pharynx: Benign
Oral: Poor Dentition (very poor dentition with multiple missing teeth and broken discolored darkened teeth , no thrish or oral ulcerations), No Thrush and No Ulcers
Cardiovascular: Regular Rate
Pulmonary: Clear (Decreased breath sounds at both bases) and Other (decreased breath sounds bilateral bases)
Gastrointestinal: Soft, Non Tender, Distended, Non Distended and Decreased Bowel Sounds
Genito-Urinary: Other (no flank tenderness)
Extremities: Edema (significant swelling large area left lower leg with fetid odor,slough, pus, devialized tissue, multiple small satelite lesions as well as significant scarring and painful areas) and Other (Multiple scars from skin popping along
with ulcerations in various stages of healing. Large area of ulceration on left lower leg with slough, pus, fetid odor, crenulation, necrosis)
Skin: Ulcers (acute as well as chronic lesions in various stages of healing)
Wound: Other (left lower leg)
Neurological: Awake, Alert, Oriented and AO x 3
Psychological: Calm (cooperative and able to answer questions)
Lines: Other (Jugular access IV removed per patient request)
Lab / Diagnostic Study Results
11/27/24 04:47
11/27/24 04:47
Abs Immat Gran (auto) 0.1 10^3/uL (0-0.05) H 11/26/24 20:13
Absolute Neuts (auto) 4.8 10^3/uL (1.4-6.5) 11/26/24 20:13
Absolute Lymphs (auto) 4.0 10^3/uL (1.2-3.4) H 11/26/24 20:13
Absolute Monos (auto) 0.5 10^3/uL (0.1-0.6) 11/26/24 20:13
Absolute Basos (auto) 0.0 10^3/uL (0-0.2) 11/26/24 20:13
Immature Gran % 0.6 % (0-0.5) H 11/26/24 20:13
Neutrophils % 50.2 % (42.2-75.2) 11/26/24 20:13
Lymphocytes % 41.4 % (20.5-51.1) 11/26/24 20:13
Monocytes % 5.5 % (1.7-9.3) 11/26/24 20:13
Eosinophils % 2.0 % (0-6) 11/26/24 20:13
Basophils % 0.3 % (0-2) 11/26/24 20:13
Lactic Acid 2.2 mmol/L (0.7-2.0) H 11/27/24 02:10
Microbiology Results
Micro:
11/26/24 22:49 Blood Culture - Pending
Blood/Venous
11/26/24 22:49 Blood Culture - Pending
Blood/Venous
11/27/24 03:17 MRSA Screen - Pending
Nose
11/26/24 22:49 Wound Culture - Pending
Leg - Left Gram Stain - Pending
Assessment / Plan
1. Fever/Leukocytosis today with concern for bacteremia in setting of injecting drug use
Blood cultures drawn and pending
Empiric antibiotic was initiated upon admission at initial facility with Vancomycin/Zosyn, but patient requested removal of IV and left AMA
Currently patient on oral antibiotic with Doxycycline/Amoxicillin
WBC increased today
Will continue to encourage patient to accept targeted IV antibiotic based on pending culture results
2. Large skin defect with erosion ,slough, fetid odor, pain, swelling with CT report from other facility showing no bekah destruction, no air, with edema near areas of lower leg musculature with need to observe for compartment
syndrome, necrotizing fasciitis
Continue current aggressive wound care
Advise surgical evaluation
3. Polysubstance abuse With current use of fentanyl and benzodiazepine
4 In setting of lifelong polysubstance abuse would consider evaluating the status of hepatitis C, hepatitis B, HIV, syphilis
Care Review
Plan reviewed with: Nurse, Physician and Other Provider (Wound care team)
Total Time Spent with Patient (in minutes): 75 min
--- NOTE | 2024-11-27 16:47 | W.DS.TRANS ---
DC Summary - [employer]
-
Discharge Instructions:
Discharge Diagnosis/Procedures Left Leg Cellulitis, Drug withdrawal
Diet As tolerated
Activity With assistance
Driving Restrictions Not until seen by your Dr
Bathing Restrictions None
Blood Work as per outpatient doctor
Instructions:
Stand-Alone Forms:
Changes to Home Medications: Yes
Discharge Medications:
DC Medications w/original date entered in [facility]
amoxicillin 875 mg-potassium clavulanate 125 mg tablet 1 tab PO BID #20 tabs 11/27/24
doxycycline hyclate 100 mg capsule 100 mg PO BID #20 caps 11/27/24
Home Medication Changes
added the above antibiotics
Pt left AMA
Pending Results: No
== END 2024-11-27 14:42 | disposition left against medical advice (07) | DRG 603 ==
LOC: 2 NORTH 00:24
PROVIDERS: Emergency Medicine; ADMITTING PHYSICIAN Internal Medicine; ATTENDING PHYSICIAN Internal Medicine; EMERGENCY PHYSICIAN Emergency Medicine; OTHER PHYSICIAN Hospitalist
DX: L03.116 Cellulitis of left lower limb (principal); F11.23 Opioid dependence with withdrawal; F17.200 Nicotine dependence, unspecified, uncomplicated; Z53.29 Procedure and treatment not carried out because of patient's decision for other reasons; F19.90 Other psychoactive substance use, unspecified, uncomplicated
CPT/HCPCS: 36556; 71045; 80053; 80061; 80306; 80307; 82248; 83605; 83735; 85025; 85027; 87040; 87070; 87077; 87147; 87186; 87205; 93005; 94760; 96361; 96365; 96375; 99285